=== PATIENT | female | born 1965 | race Caucasian/White ===

== ENCOUNTER 2017-02-26 20:01 | Emergency (ER) | payer OTHER ==
[~2017-02-26] VITALS: Ht 152.4 cm; Wt 93.0 kg
[2017-02-26 20:10] VITALS: BP 139/84
[2017-02-26] MEDS ORDERED: LIDOCAINE 1%, 20ML ONE (20:51)
[2017-02-26] MEDS ORDERED: DIPH,PERTUSS(ACELL),TET VAC/PF 0.5 ML IM-VACC ONE ×2 (20:51→21:00)
[2017-02-26] MEDS ORDERED: LIDOCAINE 1%, 20ML SQ ONE (21:00)
[2017-02-26] MEDS ORDERED: BACITRACIN ZINC OINT 500U/GM, 0.9 GM ONE (21:48)
== END 2017-02-26 22:06 | disposition home or self-care (01) ==
LOC: ED 20:39
DX: S31.821A Laceration without foreign body of left buttock, initial encounter (principal); W25.XXXA Contact with sharp glass, initial encounter; Y93.89 Activity, other specified; Y92.098 Other place in other non-institutional residence as the place of occurrence of the external cause; Y99.8 Other external cause status; R55 Syncope and collapse
CPT/HCPCS: 12032; 90471; 90715; 93005